=== PATIENT | female | born 1985 | race Caucasian/White ===

== ENCOUNTER 2020-11-16 16:45 | Emergency (ER) | payer MEDICAID ==
[~2020-11-16] VITALS: Ht 170.2 cm; Wt 122.5 kg
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
[2020-11-16 17:09] LABS: URINE BILIRUBIN NEGATIVE (Negative); URINE BLOOD TRACE (Negative); URINE CLARITY SL CLOUDY; URINE COLOR YELLOW; URINE GLUCOSE-RANDOM NEGATIVE (Negative); URINE KETONES NEGATIVE (Negative); URINE LEUKOCYTES-REFLEX NEGATIVE (Negative); URINE NITRITE-REFLEX NEGATIVE (Negative); URINE PROTEIN TRACE (Negative); URINE SPECIFIC GRAVITY 1.025 (1.005-1.030)
[2020-11-16 17:14] LABS: SQUAMOUS >10 Many /LPF (0-3); URINE WBC-REFLEX 0-5 Rare /HPF (0-5)
[2020-11-16 17:15] LABS: BACTERIA-REFLEX >30 Many /HPF (None Seen); CASTS None Seen /LPF (None Seen); CRYSTALS None Seen /LPF (None Seen); MUCUS >6 Heavy strn/LPF (None Seen); URINE RBC 0-2 Rare /HPF (0-2)
[2020-11-16 17:20] LABS: ABSOLUTE EOSINOPHILS 0.1 thou/uL (0.0-0.7); ABSOLUTE LYMPHOCYTES 2.2 thou/uL (0.8-5.3); ABSOLUTE MONOCYTES 0.4 thou/uL (0.0-1.2); ABSOLUTE NEUTROPHILS 2.8 thou/uL (1.6-8.1); BASOPHILS 0.5 %; EOSINOPHILS 1.8 %; HEMATOCRIT 36.6 % (37.0-47.0); HEMOGLOBIN 12.6 gm/dL (12.0-15.0); LYMPHOCYTES 40.4 %; MCH 33.5 pg (26.0-34.0); MCHC 34.5 g/dL (28.0-37.0); MCV 96.9 fL (80.0-100.0); MONOCYTES 6.8 %; MPV 8.2 fl. (7.2-11.1); NUCLEATED RBCS 0 /100WBC; PLATELET COUNT* 181 thou/uL (150-400); POLYS 50.5 %; RBC 3.78 mil/uL (4.20-5.00); RDW-CV 16.3 % (10.5-14.5); WBC 5.4 thou/uL (4.0-11.0)
[2020-11-16 17:21] LABS: AMP/METHAMP Negative (Negative); BARBITURATES Negative (Negative); BENZODIAZEPINES Negative (Negative); COCAINE Negative (Negative); METHADONE Negative (Negative); OPIATES Negative (Negative); PCP Negative (Negative); THC Negative (Negative)
[2020-11-16 17:28] LABS: CALCIUM 8.3 mg/dL (8.5-10.1); CREATININE 0.7 mg/dL (0.6-1.3); POTASSIUM 3.5 mmol/L (3.5-5.1)
[2020-11-16 17:33] LABS: ALBUMIN 3.7 g/dL (3.4-5.0); TOTAL BILIRUBIN 0.6 mg/dL (<0.1-1.0); TOTAL PROTEIN 7.1 g/dL (6.4-8.2)
[2020-11-16 17:41] LABS: ALCOHOL 257 mg/dL (<10); SALICYLATE < 2.8 mg/dL (2.8-20.0)
[2020-11-16 17:47] LABS: ACETAMINOPHEN < 2 ug/mL (10-30)
[2020-11-16 21:10] VITALS: BP 112/68
== END 2020-11-16 21:11 | disposition home or self-care (01) ==
LOC: M.ERS 16:45
PROVIDERS: Family Medicine
DX: F32.9 Major depressive disorder, single episode, unspecified (principal); F10.129 Alcohol abuse with intoxication, unspecified; Z90.49 Acquired absence of other specified parts of digestive tract; Z88.0 Allergy status to penicillin; Y90.8 Blood alcohol level of 240 mg/100 ml or more